=== PATIENT | female | born 1930 | race Caucasian/White ===

== ENCOUNTER 2019-07-08 07:10 | Emergency (ER) | payer MEDICARE, BC ==
[2019-07-08 11:01] VITALS: BP 122/59
--- NOTE | 2019-07-08 11:55 | EDM.PDOC ---
ED HPI GENERAL MEDICAL PROBLEM - General Chief Complaint: General Stated Complaint: left ANKLE PAIN Time Seen by Provider: 07/08/19 07:40 Source of Information: Reports: Patient History Limitations: Reports: No Limitations - History of Present Illness INITIAL COMMENTS - FREE TEXT/NARRATIVE: Myla is an 88 year old female who presents per EMS to the ED with complaints of right ankle/foot pain. She states that she was getting up to the bathroom this AM using her walker as usual. When transferring to the toilet her foot "gave out" and she fell down onto knees. After a couple tries pt was able to pull herself up. No other injuries. Pt now cannot bear weight to right foot. Location: Reports: Lower Extremity, Right Right Feet Pain Score (Numeric/FACES): 8 - Related Data Allergies Allergy/AdvReac Type Severity Reaction Status Date / Time codeine Allergy Intermediate Lightheaded Verified 07/08/19 07:13 ness nitrofurantoin Allergy Intermediate Rash Verified 07/08/19 07:13 [From Macrobid] piroxicam Allergy Intermediate Swollen Verified 07/08/19 07:13 Tongue acetaminophen [From Percocet] Allergy Hallucinati Verified 07/08/19 07:13 ons nitrofurantoin Allergy Rash Verified 07/08/19 07:13 macrocrystalline [From Macrobid] ibuprofen [From Motrin] AdvReac Intermediate Stomach Verified 07/08/19 07:13 Upset orphenadrine citrate AdvReac Intermediate Anxiety Verified 07/08/19 07:13 [From Norflex] oxycodone HCl [From Percocet] AdvReac Intermediate Hallucinati Verified 07:13 ons Sulfa (Sulfonamide AdvReac Intermediate Stomach Verified 07/08/19 07:13 Antibiotics) Upset Home Meds: Home Meds Aspirin 81 mg PO DAILY 02/16/16 [History] Carvedilol [Coreg] 3.125 mg PO BID 02/16/16 [History] Cholecalciferol (Vitamin D3) [Vitamin D] 1,000 unit PO DAILY 02/16/16 [History] Fluticasone Propionate [Flonase] 2 spray NASBOTH DAILY PRN 02/16/16 [History] Furosemide [Lasix] 40 mg PO 1400 PRN 02/16/16 [History] Furosemide [Lasix] 40 mg PO QAM 02/16/16 [History] Levothyroxine 75 mcg PO DAILY 02/16/16 [History] Loratadine [Claritin] 10 mg PO DAILY PRN 02/16/16 [History] Omeprazole [Prilosec] 40 mg PO DAILY 02/16/16 [History] Potassium Chloride [Klor-Con M20] 20 meq PO TID 02/16/16 [History] Quinapril [Accupril] 5 mg PO DAILY 02/16/16 [History] atorvaSTATin [Lipitor] 40 mg PO DAILY 02/16/16 [History] Magnesium Chloride [Mag Delay] 64 mg PO BID 03/01/16 [History] Propylene Glycol [Systane Balance] 1 drop OP ASDIRECTED PRN 03/01/16 [History] Acetaminophen 1,000 mg PO Q4H PRN 07/08/19 [History] Acetaminophen/HYDROcodone [[place] 325-5 MG] 1 tab PO Q8H PRN 07/08/19 [History] DULoxetine HCl [Cymbalta] 30 mg PO DAILY 07/08/19 [History] Past Medical History HEENT History: Reports: Cataract, Sinusitis Cardiovascular History: Reports: Heart Failure, High Cholesterol, Hypertension, SOB on Exertion Respiratory History: Reports: Pneumonia, Recurrent, Other (See Below) Other Respiratory History: hx of right lung CA Gastrointestinal History: Reports: Chronic Diarrhea Musculoskeletal History: Reports: Arthritis, Fracture Endocrine/Metabolic History: Reports: Hypothyroidism, Vitamin D Deficiency Oncologic (Cancer) History: Reports: Lung Dermatologic History: Reports: Eczema - Past Surgical History HEENT Surgical History: Reports: Cataract Surgery, Tonsillectomy Musculoskeletal Surgical History: Reports: Knee Replacement Social & Family History - Tobacco Use Smoking Status *Q: Never Smoker ED ROS GENERAL - Review of Systems Review Of Systems: See Below Constitutional: Denies: Fever, Chills, Weakness, Decreased Appetite HEENT: Reports: Vision Change (chronic changes to left eye, gets shots every 3 months.) Respiratory: Denies: Shortness of Breath, Cough Cardiovascular: Denies: Chest Pain, Lightheadedness, Syncope GI/Abdominal: Reports: No Symptoms : Reports: No Symptoms Musculoskeletal: Reports: Foot Pain (right). Denies: Neck Pain, Back Pain Neurological: Reports: Difficulty Walking. Denies: Confusion, Headache, Seizure , Syncope, Weakness Psychiatric: Reports: No Symptoms ED EXAM, GENERAL - Physical Exam Exam: See Below Exam Limited By: No Limitations General Appearance: Alert, WD/WN, No Apparent Distress Eye Exam: Bilateral Eye: Normal Inspection Ears: Normal External Exam, Normal Canal, Hearing Grossly Normal, Normal TMs Nose: Normal Inspection, Normal Mucosa, No Blood Throat/Mouth: Normal Inspection, Normal Lips, Normal Gums, Normal Oropharynx, Normal Voice, No Airway Compromise Head: Atraumatic, Normocephalic Neck: Normal Inspection, Supple, Non-Tender. No: Limited Range of Motion, Tender Lateral, Tender Midline Respiratory/Chest: No Respiratory Distress, Lungs Clear, No Accessory Muscle Use Cardiovascular: Regular Rate, Rhythm, No Edema, No Murmur Peripheral Pulses: 2+: Posterior Tibial (L), Posterior Tibial (R), Dorsalis Pedis (L), Dorsalis Pedis (R) GI/Abdominal: Normal Bowel Sounds, Soft, No Organomegaly, No Distention Extremities: Leg Pain (pain to right foot along midarch extending into 5th metatarsal. Full ROM of ankle. Increased discomfort with inversion of foot. No bruising noted. No swelling in foot. ). No: Pedal Edema, Slow Capillary Refill , Joint Swelling, Limited Range of Motion, Increased Warmth Neurological: Alert, Oriented, CN II-XII Intact, No Motor/Sensory Deficits Psychiatric: Normal Affect, Normal Mood Skin Exam: Warm, Dry, Intact, Normal Color, No Rash Course - Vital Signs Last Recorded V/S: Last Vital Signs Temp 99.6 F 07/08/19 11:00 Pulse 67 07/08/19 11:00 Resp 16 07/08/19 11:00 BP 122/59 L 07/08/19 11:00 Pulse Ox 98 07/08/19 11:00 - Orders/Labs/Meds Orders: Active Orders 24 hr Category Date Time Status Ankle Min 3V Rt [CR] Routine Exams 07/08/19 Taken Foot Comp Min 3V Rt [CR] Routine Exams 07/08/19 Taken Departure - Departure Time of Disposition: 12:01 Disposition: DC/Tfer to SNF 03 Clinical Impression: Right foot pain, Inability to bear weight, At risk for falling - Discharge Information Forms: ED Department Discharge - Problem List & Annotations (1) At risk for falling SNOMED Code(s): 655747617 Code(s): Z91.81 - HISTORY OF FALLING Status: Acute Current Visit: Yes (2) Inability to bear weight SNOMED Code(s): 441168852 Code(s): R26.89 - OTHER ABNORMALITIES OF GAIT AND MOBILITY Status: Acute Current Visit: Yes (3) Right foot pain SNOMED Code(s): 28441411 Code(s): M79.671 - PAIN IN RIGHT FOOT Status: Acute Current Visit: Yes - My Orders Last 24 Hours: My Active Orders 07/08/19 Ankle Min 3V Rt [CR] Routine Foot Comp Min 3V Rt [CR] Routine - Assessment/Plan Last 24 Hours: My Active Orders 07/08/19 Ankle Min 3V Rt [CR] Routine Foot Comp Min 3V Rt [CR] Routine Plan: X-rays of the right foot and ankle were negative. No obvious fracture seen. Patient is unable to bear weight. Discussed with her two sons of being a vulnerable adult with high risk of falls as she isn't able to bear weight. Discussed observation and/or assistance from [facility]. Family agreed that nursing facility would be in her best interest. Will have staff assist progressing to full weight bearing with walker. Physical therapy referral while in nursing facility. [facility] patient and we will discharge and transfer there at this time. Myla verbalized understanding and was in agreement. We did try placing cam walker which Myla did not tolerate.
== END 2019-07-08 12:50 ==
LOC: CC.ED 07:10
DX: M79.671 Pain in right foot (principal); R26.89 Other abnormalities of gait and mobility; Z91.81 History of falling; I11.0 Hypertensive heart disease with heart failure; I50.9 Heart failure, unspecified; E78.00 Pure hypercholesterolemia, unspecified; E03.9 Hypothyroidism, unspecified; Z88.5 Allergy status to narcotic agent; Z88.8 Allergy status to other drugs, medicaments and biological substances; Z88.6 Allergy status to analgesic agent; Z88.2 Allergy status to sulfonamides; Z88.1 Allergy status to other antibiotic agents; Z79.82 Long term (current) use of aspirin; Z79.899 Other long term (current) drug therapy
CPT/HCPCS: 73610-RT; 73630-RT; 99284; 99284-25

== ENCOUNTER 2019-08-01 21:48 | Emergency (ER) | payer MEDICARE, BC ==
[2019-08-01] MEDS ORDERED: Morphine 2 MG/ML Syringe IVPUSH ONE (22:02)
[2019-08-01] MEDS ORDERED: Ondansetron 4 MG/2 ML SDV IVPUSH STA (22:03)
[2019-08-01 22:10] VITALS: BP 144/67; PULSE 62
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
[2019-08-01] MEDS: Morphine 2 MG/ML Syringe IVPUSH ONE ×2 (23:10→23:18)
[2019-08-01] MEDS ORDERED: Morphine 2 MG/ML Syringe ONE (23:18)
[2019-08-01] MEDS ORDERED: Acetaminophen/HYDROcodone 325-5 MG Tab PO ONE (23:22)
[2019-08-01 23:28] LABS: CHLORIDE,CL 102 mEq/L (98-106); SODIUM,NA 140 mEq/L (136-145)
== END 2019-08-01 23:45 ==
LOC: CC.ED 21:48
DX: S72.001A Fracture of unspecified part of neck of right femur, initial encounter for closed fracture (principal); I11.0 Hypertensive heart disease with heart failure; I50.9 Heart failure, unspecified; E03.9 Hypothyroidism, unspecified; E78.00 Pure hypercholesterolemia, unspecified; Z98.890 Other specified postprocedural states; Z79.82 Long term (current) use of aspirin; Z88.2 Allergy status to sulfonamides; Z88.8 Allergy status to other drugs, medicaments and biological substances; Z88.5 Allergy status to narcotic agent; Z88.1 Allergy status to other antibiotic agents; W01.0XXA Fall on same level from slipping, tripping and stumbling without subsequent striking against object, initial encounter
CPT/HCPCS: 36415; 80048; 85025; 96374; 96375; 96376; 99284; 99284-25; A9270-GY; J2270; J2405